=== PATIENT | male | born 1950 | race Caucasian/White ===

== ENCOUNTER → 2018-09-11 19:11 | Outpatient (CLI) | payer MEDICARE, OTHER, SELFPAY ==
--- NOTE | 2018-09-11 | DI.MRI.S_ITS ---
PROCEDURE: MR SHOULDER LT WO CON INDICATIONS: PAIN IN LEFT SHOULDER TECHNIQUE: Noncontrast oblique coronal T2 fast spin echo with fat saturation, oblique sagittal T1 spin echo and T2 fast spin echo with fat saturation, axial T1 spin echo and T2 fast spin echo with fat saturation through the shoulder. COMPARISON: [facility], MR, C-SPINE WITHOUT CONTRAST, 09/21/2015, 14:39. FINDINGS: Image quality: Degraded by motion artifact. Rotator cuff: Partial thickness bursal sided tear of the supraspinatus tendon probably 50% of tendon thickness. There is also low-grade articular surface fraying of the supraspinatus tendon. Minimal articular surface fraying of the infraspinatus tendon. The teres minor appears intact. Subscapularis tendon demonstrates mild intrasubstance signal change keeping with low-grade tendinopathy. No atrophy of the rotator cuff musculature. Bones and bursae: No bone marrow contusions or fractures. Moderate acromioclavicular joint degeneration. The acromion demonstrates conventional anatomy, without an os acromiale. Mild to moderate subacromial/subdeltoid bursal fluid. Capsule and soft tissues: Mild frayed appearance of the superior labrum without discrete tear by strict MR criteria. this finding is technically age-indeterminate. Evaluation of the labrum is degraded by motion artifact. The long head of the biceps tendon demonstrates normal location and morphology. The rotator interval appears normal, without fibrosis. The coracohumeral ligament is normal in thickness. IMPRESSION: Partial thickness bursal sided tear of the supraspinatus tendon in addition to low-grade articular surface fraying. Associated mild to moderate subacromial/subdeltoid bursitis. Minimal articular surface fraying of the infraspinatus tendon. Subscapularis tendinopathy, mild. Superior labral poorly defined mild fraying, technically age-indeterminate. Dictated by: Stanford Mendieta M.D. on 09/12/2018 at 10:14 Approved by: Stanford Mendieta M.D. on 09/12/2018 at 10:22
== END ==
PROVIDERS: Family Provider Physician Assistant; PCP Physician Assistant; Visit Provider Internal Medicine
DX: M25.512 Pain in left shoulder (principal); M75.112 Incomplete rotator cuff tear or rupture of left shoulder, not specified as traumatic; M19.012 Primary osteoarthritis, left shoulder; M75.52 Bursitis of left shoulder
CPT/HCPCS: 73221

== ENCOUNTER → 2021-09-09 12:08 | Outpatient (CLI) | payer MEDICARE, OTHER, SELFPAY ==
--- NOTE | 2021-09-09 | DI.MRI.S_ITS ---
PROCEDURE: MR SHOULDER RT WO CON INDICATIONS: Unspecified rotator cuff tear or rupture of right shoulder, TECHNIQUE: Noncontrast oblique coronal T2 fast spin echo with fat saturation, oblique sagittal T1 spin echo and T2 fast spin echo with fat saturation, axial T1 spin echo and T2 fast spin echo with fat saturation through the shoulder. COMPARISON: [facility], MR, MR SHOULDER LT WO CON, 09/11/2018, 19:27. FINDINGS: Image quality: Degraded by motion artifact. Rotator cuff: Mild T2 signal elevation throughout the supraspinatus and infraspinatus tendons at the humeral insertion sites, indicating tendinopathy. There is increased, now full-thickness tearing of the posterior supraspinatus, as well as the anterior infraspinatus tendon at the humeral insertion site, extending to the musculotendinous junction, measuring roughly 15 mm anteroposterior. Low-grade partial-thickness intrasubstance tearing of the mid and posterior supraspinatus tendon at the humeral insertion site extending the musculotendinous junction. Subscapularis and teres minor tendons are intact. No rotator cuff atrophy. Bones and bursae: No bone marrow contusions or fractures. Moderate acromioclavicular joint degeneration. The acromion demonstrates conventional anatomy, without an os acromiale. No pathologic subacromial-subdeltoid or subcoracoid bursal fluid is present. Capsule and soft tissues: Small bowel humeral joint effusion. Diffuse degenerative fraying of the glenoid labrum is present. The long head of the biceps tendon demonstrates normal location and morphology. The rotator interval appears normal, without fibrosis. The coracohumeral ligament is normal in thickness. IMPRESSION: 1. Tendinopathy of the supraspinatus and infraspinatus. Superimposed full-thickness tearing of the supraspinatus/infraspinatus junction. Partial-thickness tearing of the remainder of the infraspinatus. 2. Acromioclavicular joint osteoarthritis. 3. Diffuse degenerative glenoid labral tearing. Dictated by: Maged Alexander M.D. on 09/09/2021 at 15:41 Approved by: Maged Alexander M.D. on 09/09/2021 at 15:44
== END ==
PROVIDERS: Family Provider Physician Assistant; PCP Internal Medicine; Referring Provider Orthopaedic Surgery; Visit Provider Orthopaedic Surgery
DX: M75.121 Complete rotator cuff tear or rupture of right shoulder, not specified as traumatic (principal); S43.401A Unspecified sprain of right shoulder joint, initial encounter; M19.011 Primary osteoarthritis, right shoulder
CPT/HCPCS: 73221

== ENCOUNTER → 2021-09-24 10:01 | Outpatient (CLI) | payer MEDICARE, OTHER, SELFPAY ==
[2021-09-24 11:02] LABS: COVID19 -Nasal RAPID Negative (Negative)
== END ==
PROVIDERS: Family Provider Physician Assistant; PCP Internal Medicine; Visit Provider Surgery
DX: Z01.812 Encounter for preprocedural laboratory examination (principal); Z20.822 Contact with and (suspected) exposure to COVID-19
CPT/HCPCS: 87635; C9803

== ENCOUNTER 2021-09-27 08:08 | Day surgery (SDC) | payer MEDICARE, OTHER, SELFPAY ==
--- NOTE | 2021-09-27 | PATH_ITS ---
[facility] Accession Number: [id number] . 01 Material submitted: . colon - CECUM POLYP X2 . 02 Diagnosis: Cecum Polyp x2: Portions of tubular adenoma x4. MRV 09/29/2021 1137 Local . 02 Electronically signed: . Shahla Hendricks MD, Pathologist NPI- [id number] . 01 Gross description: . The specimen is received in formalin, labeled cecum polyp and consists of four pino-pink fragments of soft tissue measuring 0.6 x 0.5 x 0.2 cm in aggregate. The specimen is entirely submitted in cassette A1. ([id number]) /MRV 09/28/2021 1054 Local . 02 Pathologist provided ICD-10: K63.5 . 02 CPT . 827721 Performed at: 01 [facility] [address] [id number] MD Josh Camacho MD Phone: [phone] Performed at: 02 [facility] [address] [place] [id number] MD Karma Turner MD Phone: [phone]
[2021-09-27 08:27] VITALS: BMI 33.0
[2021-09-27 08:44] VITALS: BP 144/88; PULSE 75; RESP 16; TEMP 36.6; O2SAT 98
[2021-09-27] MEDS: LACTATED RINGERS 1,000 ML 200 ML IV (08:44)
--- NOTE | 2021-09-27 08:48 | PM.HP.1 ---
History of Present Illness History of Present Illness Date Patient Seen: 09/27/21 Time Patient Seen: 08:48 Chief complaint: SDC Narrative: The patient presents for colorectal sreening. Previous colonoscopy 5 years ago demonstrated benign polyps. No personal or family history of colon cancer. On further history denies any recent gastrointestinal symptoms. No nausea, vomiting, abdominal pain, loss of appetite, unexplained weight loss, change in bowel habits, diarrhea, constipation, melena, hematochezia, or bright red blood per rectum. Patient History Medical History (Updated 09/27/21 @ 08:49 by Alexx Montero MD) Obesity Surgical History (Updated 09/27/21 @ 08:49 by Alexx Montero MD) Hx of cholecystectomy Family & Social History Social History: household members none Tobacco & Substance use: Smoking Status Never smoker alcohol intake never Substance Use Type does not use Meds Home Medications and Allergies Home Medications Medication Instructions Recorded Confirmed Type sodium,potassium,mag sulfates 17.5 See Rx Instructions PO .COMPLEX 08/30/21 Rx gram-3.13 gram-1.6 gram oral soln #354 ml (Suprep Bowel Prep Kit) Allergies Allergy/AdvReac Type Severity Reaction Status Date / Time No Known Drug Allergies Allergy Verified 09/27/21 08:24 Exam Vital Signs (past 8 hours): - 09/27/21 08:44 Temperature 97.8 F Pulse Rate 75 Respiratory Rate 16 Blood Pressure 144/88 H Pulse Oximetry 98 Oxygen Delivery Method Room Air Narrative Exam Narrative: Constitutional-he is oriented to person, place and time. No apparent distress Cardiovascular- regular rate, mild peripheral edema Pulmonary-unlabored respiratory effort, no audible wheezing Abdominal-soft, non-tender, non-distended Musculoskeletal-no cyanosis or clubbing Neurological-nonfocal, normal strength throughout, Assessment & Plan Assessment and plan (1) Screening for colon cancer: Status: Acute Assessment & Plan narrative: The patient requires colorectal screening and colonoscopy is recommended. Technical details were discussed. Risks, benefits, alternatives explained. Risks including but not limited to myocardial infarction, aspiration, bleeding, pain, missed lesion, incomplete examination, need for further radiographic studies, colonic perforation, and need for major abdominal surgery were discussed. All questions were answered to their satisfaction, and they are in agreement with this plan. Time Spent With Patient Critical Care time: I spent a total of [] minutes of critical care time on this patient's care today; this time is exclusive of procedural time.
[2021-09-27] MEDS: fentaNYL 250 MCG/5 ML INJ IV (08:54)
[2021-09-27] MEDS: MIDAZOLAM 5 MG/5 ML VIAL IV (08:54)
--- NOTE | 2021-09-27 09:14 | PM.OP.COLON ---
Operative Date/Time/Diagnoses Date of procedure: 09/27/21 Time of procedure: 09:14 Pre-op diagnosis: Personal history of colonic polyps Post-op diagnosis: same Procedure & Clinicians Study performed: Colonoscopy Same procedure as scheduled: Yes Indications: Personal history colonic polyps Surgeon: Alexx Montero Procedure Notes Procedure in detail: Medications: Conscious sedation using 4mg IV midazolam and 100mcg IV of fentanyl The history and physical was performed/updated and the patient is ASA class is 2. The procedure was discussed in detail with the patient. Potential risks complications including infection, bleeding, missed diagnosis, perforation, need for surgery, and were explained. Their questions were answered and informed consent was obtained. Patient was brought to the procedure room and placed standard monitoring equipment. The patient's vital signs were monitored continuously throughout the entire procedure. Prior to starting time-out was performed. The patient was placed in the left lateral recumbent position. Procedural sedation was administered. Examination began with a thorough inspection of the perianal area there was no evidence of fissures, fistulae, external hemorrhoids or cutaneous malignancy. The colonoscopy scope was then placed into the anal canal and was advanced to the cecum, which was identified by the ileocecal valve, the appendiceal orifice and the confluence of the taenia. The scope was then slowly withdrawn examining colon thoroughly in all directions, irrigating it of any residual stool. FINDINGS 1. 3 mm polyp x 2 cecum removed with biopsy forceps 2. sigmoid diverticulosis The patient tolerated the procedure well. They will be discharged once criteria are met. The prep was of good/excellent quality. The withdrawl time was 7 minutes. The sedation time was 19 minutes. Specimen(s): other (cecum polyp x 2) Complications: none Impression: colonic polyps Post-procedure Recommendations: Colonoscopy in 5 years Disposition: same day surgery
[2021-09-27 09:16] VITALS: BP 126/88; PULSE 68; RESP 12; TEMP 36.6; O2SAT 95
[2021-09-27 09:21] VITALS: BP 131/84; PULSE 69; RESP 16; O2SAT 95
[2021-09-27 09:26] VITALS: BP 122/72; PULSE 68; RESP 15; O2SAT 95
[2021-09-27 09:31] VITALS: BP 136/82; PULSE 68; RESP 18; TEMP 36.8; O2SAT 95
[2021-09-27 09:36] VITALS: BP 122/85; PULSE 67; RESP 21; TEMP 36.7; O2SAT 96
== END 2021-09-27 10:15 | disposition home or self-care (01) ==
PROVIDERS: Family Provider Physician Assistant; PCP Internal Medicine; Referring Provider Surgery; Visit Provider Surgery
PROC: 0DJD8ZZ Inspection of Lower Intestinal Tract, Via Natural or Artificial Opening Endoscopic (ICD-10-PCS; CPT 45378; principal; 2021-09-27 09:15)
DX: Z12.11 Encounter for screening for malignant neoplasm of colon (principal); Z86.010 Personal history of colon polyps; E66.9 Obesity, unspecified; K57.30 Diverticulosis of large intestine without perforation or abscess without bleeding; D12.0 Benign neoplasm of cecum
CPT/HCPCS: 45380; 99152; J2250; J3010

== ENCOUNTER 2024-10-03 13:36 | Emergency (ER) | payer MEDICARE, OTHER, SELFPAY ==
[2024-10-03 13:39] VITALS: BP 158/98; PULSE 68; RESP 16; TEMP 36.6; O2SAT 98; BMI 33.9
--- NOTE | 2024-10-03 14:46 | ED_ITS ---
HPI - Back Pain/Injury <Armida Perkins PA-C - Last Filed: 10/03/24 17:00> General Chief Complaint: Back Pain/Injury Stated Complaint: lower back pain, r leg numbness Time Seen by Provider: 10/03/24 14:23 Source: patient History of Present Illness HPI Narrative: Mr. Cesar is a pleasant 74-year-old male with a past medical history of hypertension, hyperlipidemia who presents to the emergency department for right low back pain x5 days. Patient states the pain is radiating into his right anterior thigh and causing pain and tingling in the right thigh. Reports no trauma precipitated his symptoms however last week he was in [place] and walked over 3-4 miles a day. Patient reports he occasionally has low back pain however it has never radiated to his thigh before. States that the pain in the thighs actually worse than the back. Denies numbness or tingling in the lower legs. Denies saddle anesthesia, bowel or bladder incontinence, fevers, chills, chest pain, abdominal pain, nausea, vomiting. Patient reports he has been taking Tylenol, tramadol, occasionally ibuprofen without any relief. Pain is exacerbated by standing and walking, pain is alleviated by leaning on his left side. Related Data Previous Rx's Medication Instructions Recorded lidocaine 5 % topical patch 1 patch topical DAILY #15 ea 10/03/24 (Lidoderm) prednisone 20 mg tablet 40 mg (2 x 20 mg) PO DAILY 4 days 10/03/24 #8 tabs Allergies Allergy/AdvReac Type Severity Reaction Status Date / Time No Known Drug Allergies Allergy Verified 09/27/21 08:24 Review of Systems <Armida Perkins PA-C - Last Filed: 10/03/24 17:00> Review of Systems ROS Unobtainable: All systems reviewed & are unremarkable except as noted in HPI and below Patient History <Armida Perkins PA-C - Last Filed: 10/03/24 17:00> Medical History Obesity Surgical History Hx of cholecystectomy Social History household members: none Smoking Status: Never smoker alcohol intake: never Smoking Status: Never smoker Exam <Armida Perkins PA-C - Last Filed: 10/03/24 17:00> Narrative Exam Narrative: GENERAL: 74 year old patient appears stated age. Well-developed patient, in no acute distress. HEAD: Atraumatic. Normocephalic. EYES: Extraocular motions intact. No scleral icterus. No injection or drainage. ENT: Nose without bleeding, purulent drainage. NECK: Trachea midline. Cervical ROM intact. CARDIOVASCULAR: Regular rate and rhythm. RESPIRATORY: ?Nonlabored respirations. ?Speaking in clear, full sentences. ? Clear to auscultation. GASTROINTESTINAL: Abdomen soft, non-tender, nondistended. EXTREMITIES: No edema or joint tenderness. No tenderness to palpation of right thigh. 5/5 bilateral lower extremity knee flexion and extension strength. BACK: No CVA tenderness. No midline spinal tenderness. Subjective pain in the low right lumbar paraspinal/sacral area. NEURO: AOx3. ?Clear speech. ?Moves all 4 extremities appropriately. Sensation intact to light touch throughout the lower extremities. SKIN: No rash or erythema of visible areas Initial Vital Signs Initial Vital Signs: Vital Signs Temperature 97.9 F 10/03/24 13:39 Pulse Rate 68 10/03/24 13:39 Respiratory Rate 16 10/03/24 13:39 Blood Pressure 158/98 H 10/03/24 13:39 Pulse Oximetry 98 10/03/24 13:39 Oxygen Delivery Method Room Air 10/03/24 13:39 <Kashmir Canada DO - Last Filed: 10/03/24 17:10> Initial Vital Signs Initial Vital Signs: Vital Signs Temperature 97.9 F 10/03/24 13:39 Pulse Rate 68 10/03/24 13:39 Respiratory Rate 16 10/03/24 13:39 Blood Pressure 158/98 H 10/03/24 13:39 Pulse Oximetry 98 10/03/24 13:39 Oxygen Delivery Method Room Air 10/03/24 13:39 Course <Armida Perkins PA-C - Last Filed: 10/03/24 17:00> Orders Ordered: ED Orders 10/03/24 15:04 CT lumbar spine wo con Stat Discontinued Medications Ketorolac Tromethamine (Ketorolac 30 Mg/Ml Vial) 30 mg IM NOW ONE Stop: 10/03/24 15:05 Last Admin: 10/03/24 15:15 Dose: 30 mg Documented By: RB Lidocaine (Lidocaine 5% Patch) 1 each TOP NOW ONE Stop: 10/03/24 15:05 Last Admin: 10/03/24 15:16 Dose: 1 each Documented By: RB Prednisone (Prednisone 20 Mg Tablet) 60 mg PO NOW ONE Stop: 10/03/24 15:05 Last Admin: 10/03/24 15:15 Dose: 60 mg Documented By: RB Vital Signs Vital signs: Vital Signs - 8 hr 10/03/24 13:39 Temperature 97.9 F Pulse Rate 68 Respiratory Rate 16 Blood Pressure 158/98 H Pulse Oximetry 98 Oxygen Delivery Method Room Air <Kashmir Canada DO - Last Filed: 10/03/24 17:10> Orders Ordered: ED Orders 10/03/24 15:04 CT lumbar spine wo con Stat Discontinued Medications Ketorolac Tromethamine (Ketorolac 30 Mg/Ml Vial) 30 mg IM NOW ONE Stop: 10/03/24 15:05 Last Admin: 10/03/24 15:15 Dose: 30 mg Documented By: RENETTA Lidocaine (Lidocaine 5% Patch) 1 each TOP NOW ONE Stop: 10/03/24 15:05 Last Admin: 10/03/24 15:16 Dose: 1 each Documented By: RENETTA Prednisone (Prednisone 20 Mg Tablet) 60 mg PO NOW ONE Stop: 10/03/24 15:05 Last Admin: 10/03/24 15:15 Dose: 60 mg Documented By: RENETTA Vital Signs Vital signs: Vital Signs - 8 hr 10/03/24 13:39 Temperature 97.9 F Pulse Rate 68 Respiratory Rate 16 Blood Pressure 158/98 H Pulse Oximetry 98 Oxygen Delivery Method Room Air MDM - Back Pain/Injury <Armida Perkins PA-C - Last Filed: 10/03/24 17:00> Lab Data Labs: Urine Dip Bedside Urine Glucose Negative Bedside Urine Bilirubin - Negative Bedside Urine Ketone - Negative Urine Specific [place] 1.010 Bedside Urine Occult Blood - Negative Bedside Urine pH 6.5 Bedside Urine Protein - Negative Bedside Urine Urobilinogen - Negative Bedside Urine Nitrite - Negative Bedside Urine Leukocytes - Negative Esterase Imaging Data Lumbar CT: Radiologist's Impression: PROCEDURE: CT LUMBAR SPINE WO CON INDICATIONS: low back pain radiating right thigh TECHNIQUE: Noncontrast 3 mm thick sections acquired from the T12 level to the sacrum. Sagittal and coronal reformats were constructed. For radiation dose reduction, the following was used: automated exposure control. COMPARISON: None. FINDINGS: Image quality: Excellent. Bones: There is normal bony alignment. Multilevel degenerative changes of the spine with disc height loss, osteophytosis and facet arthropathy. This is most pronounced at L4-5. No acute vertebral body compression fractures. No suspicious lytic or blastic bony lesions. No pars defects. Decreased osseous mineralization. Moderate central canal stenosis at L3-L4 and L4-5. At least moderate bilateral neural foraminal stenosis at L2-L3 and L3-L4. Severe bilateral neural foraminal stenosis L4-5 and L5-S1 Soft tissues: No retroperitoneal masses or hematomas. Visualized aorta is normal in caliber. Atherosclerotic vascular calcifications. Nonobstructing bilateral renal stones. Diverticulosis within the visualized colon without diverticulitis. IMPRESSION: Multilevel degenerative changes of the lumbar spine as described above. Moderate central canal stenosis at L3-L4 and L4-5. Severe bilateral neural foraminal stenosis at L4-5 and L5-S1. [facility] Narrative Medical decision making narrative: 74-year-old male with a past medical history of hypertension, hyperlipidemia who presents to the emergency department for right low back pain x5 days. Pain radiates to R thigh. Differential diagnosis includes but is not limited to lumbar radiculopathy, spinal stenosis, meralgia paresthetica, UTI, nephrolithiasis, ureterolithiasis, muscle spasm, muscle strain, etc. On exam patient is in no acute distress, nontoxic appearing, vital signs appropriate except for mild hypertension. On physical exam patient is neurova scularly intact in the bilateral lower extremities however he does have subjective pain in the right low back radiating into the right thigh in the L3 distribution. Good strength and sensation. Due to patient's age and no history of prior imaging, we will obtain CT lumbar spine to rule out bony abnormality or bony lesion. We will obtain urinalysis. We will treat symptoms Toradol and prednisone. Patient's pain improved after ED treatment. CT scan reveals multilevel degenerative changes of the lumbar spine including moderate central canal stenosis at L3-L4 and L4-L5. Severe bilateral neuroforaminal stenosis at L4-L5 and L5-S1. Results were printed and discussed with the patient. He is neurovascularly intact and ambulatory. Urinalysis negative for infection or blood. Provided patient with orthopedic spine surgery follow up for further management. Prescribed 4 additional days of prednisone, lidocaine patches, recommended ibuprofen Tylenol, gentle stretching, warm compress. Patient verbalized understanding of all information and is stable for discharge home. He is ambulatory. <Kashmir DO Nancie - Last Filed: 10/03/24 17:10> Lab Data Labs: Urine Dip Bedside Urine Glucose Negative Bedside Urine Bilirubin - Negative Bedside Urine Ketone - Negative Urine Specific [place] 1.010 Bedside Urine Occult Blood - Negative Bedside Urine pH 6.5 Bedside Urine Protein - Negative Bedside Urine Urobilinogen - Negative Bedside Urine Nitrite - Negative Bedside Urine Leukocytes - Negative Esterase Discharge Plan Departure Patient Disposition: Home Clinical Impression: Acute lumbar radiculopathy DDD (degenerative disc disease), lumbar Qualifiers: Disc-related pain type: discogenic back pain and lower extremity pain Qualified Code(s): M51.362 - Other intervertebral disc degeneration, lumbar region with discogenic back pain and lower extremity pain Instructions: DI for Low Back Pain Activity Restrictions/Additional Instructions: Today you were evaluated for low back pain and pain and tingling in your right thigh. The CT scan of your low back shows multilevel degenerative changes including moderate canal stenosis and severe bilateral neural foraminal stenosis. You were treated with an injection of anti-inflammatory pain medicine and a dose of steroids in the ER. I have prescribed 4 additional days of steroids for you to take in addition to lidocaine patches. Please also take ibuprofen and Tylenol for pain. Please follow up with orthopedic spine surgeon for further evaluation. [facility] [phone]: Orthopedic Spine surgeon Dr. Salazar Kohli. Return to the ER if you develop any new or worsening symptoms. Please take Ibuprofen (Motrin/Advil) or Acetaminophen (Tylenol) for pain. These are available over the counter. You may take Ibuprofen 600 mg every 8 hours with food for pain. You may also take Acetaminophen 650 mg every 4-6 hours for pain. Do not exceed 3000 mg of Tylenol a day as this can cause liver damage. Do not drink alcohol with either of these medications. Please follow up with your primary care doctor within the next 2-3 days for ER follow-up. (If you do not have a PCP you can call [phone]. ?to schedule an appointment with an [facility] Primary Care Provider) IF YOU DEVELOP ANY NEW OR WORSENING SYMPTOMS, RETURN TO THE ER! Please read the attached instructions, they highlight more specific treatments and interventions for you at home. Thank you for letting me participate in your care, Armida Perkins PA-C Prescriptions: New prednisone 20 mg tablet 40 mg PO DAILY 4 Days Qty: 8 0RF lidocaine [Lidoderm] 5 % adhesive patch,medicated 1 patch topical DAILY Qty: 15 0RF Rx Instructions: leave on most painful area for up to 12 hrs Referrals: Lori Pichardo MD [Primary Care Provider] - Stand Alone Forms: Patient Portal/API/Survey ED Sign-out <Kashmir Canada, - Last Filed: 10/03/24 17:10> Cosign ED Attending Cosignature Attestation: Dr Canada Co-Sign Statement: I was available for consultation during this patient's emergency department visit. This chart is signed by myself for administrative purposes only. I did not have direct contact with this patient during this visit. They were seen independently by the APC.
--- NOTE | 2024-10-03 15:04 | DI.CT.S_ITS ---
PROCEDURE: CT LUMBAR SPINE WO CON INDICATIONS: low back pain radiating right thigh TECHNIQUE: Noncontrast 3 mm thick sections acquired from the T12 level to the sacrum. Sagittal and coronal reformats were constructed. For radiation dose reduction, the following was used: automated exposure control. COMPARISON: None. FINDINGS: Image quality: Excellent. Bones: There is normal bony alignment. Multilevel degenerative changes of the spine with disc height loss, osteophytosis and facet arthropathy. This is most pronounced at L4-5. No acute vertebral body compression fractures. No suspicious lytic or blastic bony lesions. No pars defects. Decreased osseous mineralization. Moderate central canal stenosis at L3-L4 and L4-5. At least moderate bilateral neural foraminal stenosis at L2-L3 and L3-L4. Severe bilateral neural foraminal stenosis L4-5 and L5-S1 Soft tissues: No retroperitoneal masses or hematomas. Visualized aorta is normal in caliber. Atherosclerotic vascular calcifications. Nonobstructing bilateral renal stones. Diverticulosis within the visualized colon without diverticulitis. IMPRESSION: Multilevel degenerative changes of the lumbar spine as described above. Moderate central canal stenosis at L3-L4 and L4-5. Severe bilateral neural foraminal stenosis at L4-5 and L5-S1. Dictated by: Devin Singleton M.D. on 10/03/2024 at 16:07 Approved by: Devin Singleton M.D. on 10/03/2024 at 16:10
[2024-10-03] MEDS: predniSONE 20 MG TABLET 60 MG PO (15:15)
[2024-10-03] MEDS: KETOROLAC 30 MG/ML VIAL IM (15:15)
[2024-10-03] MEDS: LIDOCAINE 5% PATCH 1 EACH TOP (15:16)
[2024-10-03 17:21] VITALS: BP 147/73; PULSE 80; RESP 16; TEMP 36.8; O2SAT 99
== END 2024-10-03 17:22 | disposition home or self-care (01) ==
PROVIDERS: Emergency Provider Physician Assistant; Family Provider Physician Assistant; PCP Internal Medicine
DX: M51.362 Other intervertebral disc degeneration, lumbar region with discogenic back pain and lower extremity pain (principal); M48.061 Spinal stenosis, lumbar region without neurogenic claudication; M54.16 Radiculopathy, lumbar region; M48.07 Spinal stenosis, lumbosacral region
CPT/HCPCS: 72131; 81003; 96372; 99284; J1885

== ENCOUNTER → 2024-11-11 13:57 | Outpatient (CLI) | payer MEDICARE, OTHER, SELFPAY ==
--- NOTE | 2024-11-11 13:59 | DI.RAD.S_ITS ---
PROCEDURE: XR LUMBAR SPINE MIN 4V INDICATIONS: BACK PAIN TECHNIQUE: 5 views of the lumbar spine were acquired, including bilateral oblique views. COMPARISON: None. FINDINGS: Bones: 5 nonrib-bearing vertebrae are present. There is 5 mm retrolisthesis of L2 on L3. No vertebral body compression fractures. Degenerative endplate changes are noted throughout lumbar spine. No suspicious bony lesions. Soft tissues: Overlying bowel gas pattern is normal. No suspicious soft tissue calcifications. Oblique images: No pars defects. Bilateral bony foraminal stenosis at L2-3, L4-5 and L5-S1 levels are seen. IMPRESSION: Moderate degenerative disc disease throughout lumbar spine. Grade 1 retrolisthesis of L2 on L3. No acute compression fracture. No pars defect seen on oblique views. Bilateral bony foraminal stenosis at L2-3, L4-5 and L5-S1 levels. Dictated by: Alejandro Wilder M.D. on 11/11/2024 at 14:26 Approved by: Alejandro Wilder M.D. on 11/11/2024 at 14:28
== END ==
PROVIDERS: Family Provider Physician Assistant; PCP Family Medicine; Referring Provider Physical Medicine & Rehabilitation; Visit Provider Physical Medicine & Rehabilitation
DX: M51.360 Other intervertebral disc degeneration, lumbar region with discogenic back pain only (principal); M48.062 Spinal stenosis, lumbar region with neurogenic claudication; M47.816 Spondylosis without myelopathy or radiculopathy, lumbar region; M48.07 Spinal stenosis, lumbosacral region; M54.9 Dorsalgia, unspecified; G61.82 Multifocal motor neuropathy
CPT/HCPCS: 72110; 99214

== ENCOUNTER 2024-11-26 12:12 | Outpatient (CLI) | payer MEDICARE, OTHER, SELFPAY ==
[2024-11-26] VITALS (8 sets, daily range): BP systolic 111–141; BP diastolic 69–87; PULSE 60–64; RESP 16–20; TEMP 36.1; O2SAT 95–100
--- NOTE | 2024-11-26 12:13 | DI.RAD.S_ITS ---
PROCEDURE: PAIN L INTERLAMINAR/CAUDAL INJ INDICATIONS: para Rght L4/5 TL TERRY COMPARISON: None. FINDINGS/IMPRESSION: Fluoroscopic spot filming was performed to verify placement of spinal needles at the L4-5 level(s), as labeled on the films. Appropriate location(s) of the needle tip(s) was confirmed by injection of iodinated contrast. Dictated by: Nelly Vyas M.D. on 11/26/2024 at 20:16 Approved by: Nelly Vyas M.D. on 11/26/2024 at 20:16
[2024-11-26] MEDS: MIDAZOLAM 2 MG/2 ML VIAL IV (13:30)
[2024-11-26] MEDS: DEXAMETHASONE 10 MG/ML VIAL INJ (13:36)
[2024-11-26] MEDS: BETAMETHASONE 30 MG/5 ML MDV 12 MG INJ (13:37)
[2024-11-26] MEDS: iopamidoL 15 ML VIAL 3 ML INJ (13:37)
[2024-11-26] MEDS: BUPIVACAINE 0.25% (PF) VIAL 2 ML INJ (13:37)
--- NOTE | 2024-11-26 13:48 | P.PCN_ITS ---
Date/Time/Diagnoses Date of procedure: 11/26/24 Time of procedure: 13:48 Pre-procedure diagnosis: 1. HNP WITH RADICULAR FEATURES, 2. MULTILEVEL CENTRAL STENOSIS, Post-procedure diagnosis: same Procedure Notes Procedure: 1. FLUOROSCOPICALLY GUIDED CONTRAST CONTROLLED INTERLAMINAR EPIDURAL STEROID INJECTION -L4/5 Indications: Watson is referred by Dr. Guerra for treatment of Bilateral Foraminal Stenosis R>L LE symptoms. Physician: Christiano Gonzalez Total Fluoroscopy time (seconds): 6 Total sedation minutes: 12 Complications: none Procedure in detail & Post-procedure care: FINDINGS Multilevel Central Spinal Stenosis with Nerve Root Compression DESCRIPTION OF PROCEDURE Fluoroscopically guided, contrast-controlled L4/5 translaminar epidural steroid injection. Following review of allergy and review of potential side effects and complications, including, but not necessarily limited to, infection, allergic reaction, local tissue breakdown, temporary as well as permanent nerve injury, paralysis, stroke and possible , the patient indicated that the patient understood and agreed to proceed. An informed consent document was signed by the patient, witnessed by a nurse, and placed in the patient's chart. Additionally, other treatment options including modalities, medications, and physical therapy were reviewed with the patient. After review of previous anaesthesic history and IV conscious sedation the patient was deemed safe to proceed with today?s procedure with IV conscious sedation as ASA class II designation. Safety time-out was performed to confirm patient ID, procedure to be performed and site of procedure. IV sedation was accomplished with a combination of 2mg of Versed was administered by the RN after DO order, titrated to patient comfort during the course of the procedure while the patient remained responsive to all verbal commands In the prone position, following sterile prep and drape of the lumbar region, the L4/5 translaminar space was identified fluoroscopically. The skin was anesthetized via a 25-gauge, 1.5inch needle with 1% lidocaine solution. At this point, a 22-gauge short bevel spinal needle was atraumatically introduced and a dvanced under fluoroscopic guidance into the region of the L4/5 translaminar space. Depth was confirmed on lateral view. Radiological data, including multiple fluoroscopic views of the lumbar spine, reveal a spinal needle at the L4/5 translaminar space. Lateral views then show placement of the needle in the epidural space. Subsequent views show contrast material flowing superiorly and inferiorly in the epidural space. No vascular or intrathecal uptake is observed. At this point, using loss of resistance technique with saline and air, the epidural space was entered. This was confirmed following negative aspiration with injection of approximately 1.5cc of Isovue 200, showing excellent epidural flow without vascular or intrathecal uptake. At this point, 1cc of 1% lidocaine solution combined with 2cc or 10mg of dexamethasone and 6mg betamethasone was injected without incident. The patient tolerated the procedure well without signs or symptoms of complications prior to transfer to the recovery area continued monitoring without incident. The patient was then transferred to the recovery area where they were observed for an appropriate period of time after the injection. The patient reported a VAS score of 6 prior to the procedure and a post- procedure VAS of 0. POST OP INSTRUCTIONS The patient was provided a Pain Log to continue to record their response to the target-specific procedure prior to follow-up visit with their referring physician. Additionally, specific post-injection care instructions and a contact number to our office were provided if concerns arise regarding possible complications associated with the procedure are suspected.
== END 2024-11-26 14:08 | disposition home or self-care (01) ==
LOC: RAD 12:13
PROVIDERS: Family Provider Physician Assistant; PCP Family Medicine; Referring Provider Physical Medicine & Rehabilitation; Visit Provider Physical Medicine & Rehabilitation
DX: M51.16 Intervertebral disc disorders with radiculopathy, lumbar region (principal); M48.061 Spinal stenosis, lumbar region without neurogenic claudication
CPT/HCPCS: 62323; J0702; J1100; J2250; J3490

== ENCOUNTER → 2025-07-07 08:45 | Outpatient (CLI) | payer MEDICARE, OTHER, SELFPAY ==
--- NOTE | 2025-07-07 09:08 | DI.MRI.S_ITS ---
PROCEDURE: MR CERVICAL SPINE WO CON INDICATIONS: C6/7 TL TERRY TECHNIQUE: Noncontrast sagittal T1 spin echo and T2 fast spin echo, sagittal STIR, foraminal oblique sagittal T2 fast spin echo, and axial gradient echo or T2 fast spin echo through the cervical spine. COMPARISON: [facility], , C-SPINE WITHOUT CONTRAST, 09/21/2015, 14:39. FINDINGS: Image quality: Excellent. Alignment and Curvature: There is overall straightening of the normal cervical lordosis. No focal AP alignment abnormality is seen. Bone Marrow: Marrow demonstrates normal overall signal. Spinal Cord: Visualized spinal cord has normal size and signal. No cerebellar tonsillar herniation. Paraspinous Soft Tissues: No paravertebral masses. Prevertebral soft tissues are normal in thickness. C2-C3: Mild loss of disc height is seen. Loss of disc signal is seen. Mild to moderate disc osteophyte complex is seen. Moderate facet joint hypertrophy is seen. No significant neural foraminal or central canal narrowing can be seen. C3-C4: Mild loss of disc height is seen. Loss of disc signal is seen. Moderate disc osteophyte complex is seen, which is eccentric to the right. There is at least moderate right-sided and vowm-[id number] left-sided neural foraminal narrowing. Moderate to severe bilateral neural foraminal narrowing can be seen, right worse than left. Mild central canal narrowing is seen. C4-C5: Moderate loss of disc height is seen. Loss of disc signal is seen. Reactive marrow endplate changes are seen, which are hyperintense on T1-weighted and T2- weighted imaging and most consistent with fatty metaplasia (Modic type II changes). Moderate disc osteophyte complex is seen, which is eccentric to the right. There is a superimposed central disc osteophyte protrusion. Moderate facet joint hypertrophy is seen. There is moderate to severe right-sided and at least moderate left-sided neural foraminal narrowing. Mild central canal narrowing is seen. C5-C6: Mild loss of disc height is seen. Loss of disc signal is seen. Mild to moderate disc osteophyte complex is seen. There is at least moderate right-sided and moderate left-sided neural foraminal narrowing. There is at least moderate bilateral neural foraminal narrowing seen. Mild to moderate central canal narrowing is seen, with minimal mass effect upon the ventral spinal cord. C6-C7: Moderate loss of disc height is seen. Loss of disc signal is seen. Reactive marrow endplate changes are seen, which are hyperintense on T1-weighted and T2- weighted imaging and most consistent with fatty metaplasia (Modic type II changes). Moderate disc osteophyte complex is seen, which is eccentric to the left. Moderate facet joint hypertrophy is seen. There is moderate to severe left-sided and moderate right- sided neural foraminal narrowing. Mild to moderate central canal narrowing is seen, with associated mass effect upon the ventral spinal cord. C7-T1: Mild loss of disc height is seen. Loss of disc signal is seen. A mild degree of generalized disc osteophyte complex is seen. Mild facet joint hypertrophy is seen. Mild bilateral neural foraminal narrowing is seen. No central canal narrowing is seen. IMPRESSION: Multiple levels of cervical spine degenerative change can be seen, which are overall worst at the C6-C7 level. The degenerative changes are progressed compared to 2014. Dictated by: Esau Michelle M.D. on 07/07/2025 at 16:38 Approved by: Esau Michelle M.D. on 07/07/2025 at 16:43
== END ==
LOC: MRI 08:47
PROVIDERS: Family Provider Physician Assistant; PCP Family Medicine; Referring Provider Physical Medicine & Rehabilitation; Visit Provider Physical Medicine & Rehabilitation
DX: M47.22 Other spondylosis with radiculopathy, cervical region (principal); M48.02 Spinal stenosis, cervical region
CPT/HCPCS: 72141

== ENCOUNTER → 2025-08-21 13:48 | Outpatient (CLI) | payer MEDICARE, OTHER, SELFPAY | LOC: PHYS 13:49 | PROVIDERS: Family Provider Physician Assistant; PCP Family Medicine; Referring Provider Physical Medicine & Rehabilitation; Visit Provider Physical Medicine & Rehabilitation | DX: M48.02 Spinal stenosis, cervical region (principal); M54.12 Radiculopathy, cervical region | CPT/HCPCS: 95886; 95913 ==

== ENCOUNTER 2025-09-09 09:00 | Outpatient (CLI) | payer MEDICARE, OTHER, SELFPAY ==
[2025-09-09] VITALS (8 sets, daily range): BP systolic 106–140; BP diastolic 69–85; PULSE 64–70; RESP 14–18; TEMP 36.3; O2SAT 97–99
[2025-09-09] MEDS: MIDAZOLAM 2 MG/2 ML VIAL IV (10:15)
--- NOTE | 2025-09-09 10:49 | P.PCN_ITS ---
Date/Time/Diagnoses Date of procedure: 09/09/25 Time of procedure: 10:49 Pre-procedure diagnosis: 1. CERVICAL STENOSIS, 2. CERVICAL HNP WITH UPPER EXTREMITY RADICULAR FEATURES Post-procedure diagnosis: same Procedure Notes Procedure: 1. FLUORSCOPICALLY GUIDED CONTRAST CONTROLLED INTERLAMINAR EPIDURAL STEROID INJECTION - C6/7 TL TERRY Indications: Watson is referred by ASHER Oleary for treatment of Cervical HNP with Upper Extremity Paresthesias. Physician: Christiano Gonzalez Total Fluoroscopy time (seconds): 27 Total sedation minutes: 15 Complications: none Procedure in detail & Post-procedure care: FINDINGS Cervical Stenosis due to disc deterioration and nerve root irritation and nerve root irritation DESCRIPTION OF PROCEDURE Fluoroscopically guided, contrast-controlled C6/7 translaminar epidural steroid injection with conscious sedation. Following review of allergy and review of potential side effects and complications, including, but not necessarily limited to, infection, allergic reaction, local tissue breakdown, temporary as well as permanent nerve injury, stroke, paralysis, and possible , the patient indicated that patient understood and agreed to proceed. An informed consent document was signed by the patient, witnessed by a nurse, and placed in the patient's chart. Additionally, other treatment options including modalities, medications, and physical therapy were reviewed with the patient. After review of previous anaesthesic history and IV conscious sedation the patient was deemed safe to proceed with today?s procedure with IV conscious sedation as ASA class II designation. Safety time-out was performed to confirm patient ID, procedure to be performed and site of procedure. IV sedation was accomplished with a combination of 2mg of Versed administered by the RN after DO order, titrated to patient comfort during the course of the procedure while the patient remained responsive to all verbal commands. In the prone position, following sterile prep and drape of the cervical region, the C6/7 translaminar space was identified fluoroscopically. The skin was anesthetized via a 25-gauge 1.5-inch needle with 1% lidocaine solution. At this point, a 25-gauge, 2.5-inch short bevel spinal needle was atraumatically introduced and advanced under fluoroscopic guidance into epidural space at the C6/7 translaminar space. Depth was confirmed on lateral view. Radiological data, including multiple fluoroscopic views of the cervical spine, reveal a spinal needle at the C6/7 translaminar space. Lateral views then show placement of the needle in the epidural space. Subsequent views show contrast material flowing superiorly and inferiorly in the epidural space. DSA fluoroscopy with live contrast injection, once again, confirmed no vascular or intrathecal uptake. At this point, using loss of resistance technique with saline and air, the epidural space was entered. Following negative aspiration, injection of approximately 1.5 cc of Isovue-200 with live fluoroscopy in the AP view confirmed epidural flow in the epidural space without vascular or intrathecal uptake observed. Subsequently, a test dose of 1 cc of 1% lidocaine solution was injected and patient was observed for two minutes without signs or symptoms of complications, including abdominal pain, shortness of breath, bilateral upper or lower extremity weakness, nausea and vomiting, prior to steroid injection. At this point, 2cc or 20mg of dexamethasone was then injected without incident. The patient tolerated the procedure well without signs or symptoms of comp lications prior to being transferred to the recovery area for further monitoring, The patient was then transferred to the recovery area where they were observed for an appropriate period of time after the injection. The patient reported a VAS score of 6 prior to the procedure and a post-procedure VAS of 0. POST OP INSTRUCTIONS The patient was provided a Pain Log to continue to record their response to the target-specific procedure prior to follow-up visit with the referring provider. Additionally, specific post-injection care instructions and a contact number to our office were provided if concerns arise regarding possible complications associated with the procedure are suspected.
== END 2025-09-09 10:47 | disposition home or self-care (01) ==
LOC: RAD 09:01
PROVIDERS: Family Provider Physician Assistant; PCP Family Medicine; Referring Provider Physical Medicine & Rehabilitation; Visit Provider Physical Medicine & Rehabilitation
DX: M48.02 Spinal stenosis, cervical region (principal); M50.123 Cervical disc disorder at C6-C7 level with radiculopathy
CPT/HCPCS: 62321; 99152; J1100; J2250

== ENCOUNTER 2025-10-21 06:32 | Day surgery (SDC) | payer MEDICARE, OTHER, SELFPAY ==
[2025-10-09 12:11] VITALS: BMI 33.0
--- NOTE | 2025-10-21 07:08 | PM.PREOP ---
Pre-operative Note Interval Note History & Physical reviewed/Exam performed by Physician: Yes Changes to H&P: No
--- NOTE | 2025-10-21 07:18 | SUR.OPER ---
Supine on padded OR bed, head on pillow, arms secured on padded arm boards at <90 degrees abduction, legs uncrossed, safety belt at thigh, tape over blanket over lower legs.Final positioning done by provider
[2025-10-21 07:28] VITALS: BP 144/79; PULSE 69; RESP 15; TEMP 36.2; O2SAT 99
[2025-10-21] MEDS: LACTATED RINGERS 1,000 ML 42 ML IV (07:34)
[2025-10-21] MEDS: LIDOCAINE 1% W/EPI 10ML 20 ML INJ (08:07)
[2025-10-21 08:32] VITALS: BP 119/67; PULSE 62; RESP 20; TEMP 36.1; O2SAT 95
[2025-10-21 08:37] VITALS: BP 122/76; PULSE 63; RESP 20; TEMP 36.1; O2SAT 97
--- NOTE | 2025-10-21 08:40 | P.OP_ITS ---
Operative Date/Time/Diagnoses Date of procedure: 10/21/25 Time of procedure: 07:45 Pre-op diagnosis: Right Carpal Tunnel Syndrome Post-op diagnosis: same Procedure & Clinicians Procedure: RIGHT Carpal Tunnel Release Same procedure(s) as scheduled: Yes Surgeon: Tino Holland Assisted?: Yes Upper Lining Cementer: Marion Foote Anesthesia Type: General Operative Notes Findings: Thickened Transverse Carpal Ligament Closure Type: primary Specimen(s): none sent Applied: none Estimated Blood Loss (mL): 5 Blood products transfused: none Tourniquet time (min): 29 Procedure in detail: Laterality: Right Preoperative diagnosis: Carpal Tunnel Syndrome Procedure performed: Carpal Tunnel Release, Open Postoperative diagnosis: Same Primary Surgeon: Tino Holland MD Secondary Surgeon: Alaina Anesthesia: General EBL: 5 ml Tourniquet: 29 minutes @ 250 mmHg Indication For Surgery: Patient presented with signs and symptoms of carpal tunnel syndrome. Conservative treatment did not result in adequate symptom improvement. The risks, benefits, and alternatives were discussed. Risks include pain, bleeding, infection, damage to nearby structures, pillar pain, wound healing complications, thumb weakness, numbness, lack of symptom relief, need f or further surgery, DVT, PE, stroke, and . Written consent was obtained. Operative Findings: Thickened transverse carpal ligament was released. No carpal tunnel masses. Procedure in Detail: The patient was met in the pre-operative hold area. Consent was verified and operative extremity was signed. Local anesthesia was injected. The patient then met with anesthesia and was brought back to the operating room. The patient was placed supine on the operating table. Anesthetic was administered. The extremity was then prepped and draped in the usual sterile fashion. A timeout was performed per protocol. All were in agreement and we proceeded. 8 cc of lidocaine with epinephrine was injected into the surgical site. The quality of anesthetic was tested with an adson forceps. A 3cm longitudinal incision was made in line with the ulnar border of the ring finger starting at Garcia's Cardinal line distally. This was just radial to the hook of the hamate. Sharp dissection was brought down through the palmar fascia. Retractors were placed. The transverse carpal ligament was identified and a knife was used to incise it longitudinally until fat was seen distally in the palm. Long handled Metzenbaum scissors were then used to create a pocket just superficial to the transverse carpal ligament and a retractor was placed. The scissors were then placed deep to the ligament to bluntly separate the contents of the canal from ligament. I then pointed the tips of the scissors ulnarly and completed the release 2 cm into the antebrachial fascia. A freer elevator was used to confirm complete release both proximally and distally. The wound was then irrigated copiously and closed with 4-0 nylon in a horizontal mattress configuration. A sterile bulky dressing was applied. Postoperative Plan: Same day surgery discharge Leave bulky dressing on until follow up No use of operative hand 2 week follow up for suture removal. No manual labor 6 week follow up with anticipated release to full activity Tino Holland MD Complications: none Post-operative Condition: stable Disposition: PACU
== END 2025-10-21 09:02 | disposition home or self-care (01) ==
PROVIDERS: Family Provider Physician Assistant; PCP Family Medicine; Referring Provider Orthopaedic Surgery; Visit Provider Orthopaedic Surgery
PROC: (CPT 64721; principal; 2025-10-21 07:45)
DX: G56.01 Carpal tunnel syndrome, right upper limb (principal); G47.33 Obstructive sleep apnea (adult) (pediatric); I10 Essential (primary) hypertension; E66.9 Obesity, unspecified; Z68.33 Body mass index [BMI] 33.0-33.9, adult
CPT/HCPCS: 64721; J0689; J1885; J2405; J2704; J7120